=== PATIENT | male | born 1970 | race African-American/Black ===

== ENCOUNTER 2020-09-13 19:11 | Emergency (ER) | payer BC, OTHER ==
[~2020-09-13] VITALS: Ht 188 cm; Wt 97.5 kg
[2020-09-13 21:08] LABS: URINE BILIRUBIN NEGATIVE (Negative); URINE BLOOD NEGATIVE (Negative); URINE CLARITY CLEAR; URINE COLOR YELLOW; URINE GLUCOSE-RANDOM* NEGATIVE (Negative); URINE KETONES NEGATIVE (Negative); URINE LEUKOCYTES-REFLEX NEGATIVE (Negative); URINE NITRITE-REFLEX NEGATIVE (Negative); URINE PROTEIN (DIPSTICK) NEGATIVE (Negative); URINE UROBILINOGEN 0.2 E.U./dl (0.2-1.0)
[2020-09-13 22:15] VITALS: BP 140/91
== END 2020-09-13 22:21 | disposition home or self-care (01) ==
LOC: ER 19:11
PROVIDERS: Nurse Practitioner Family
DX: U07.1 COVID-19 (principal)